=== PATIENT | female | born 1990 | race African-American/Black ===

== ENCOUNTER 2017-07-04 18:12 | Emergency (ER) | payer MEDICAID, SELFPAY ==
[2017-07-04 21:07] LABS: #Basophils 0.1 thou/uL (0.0-0.2); #Eosinphils 0.6 thou/uL (0.0-0.7); #Lymphocytes 3.5 thou/uL (1.20-3.40); #Monocytes 0.5 thou/uL (0.11-0.59); #Neutrophils 3.5 thou/uL (1.40-6.50); %Basophils 0.8 % (0.0-1.0); %Lymphocytes 43.1 % (21.0-51.0); Hematocrit 38.6 % (36.0-47.0); Mean Platelet Volume 7.2 fL (7.4-10.4); White Blood Cell (WBC) Count 8.1 thou/uL (4.8-10.8)
[2017-07-04 21:19] LABS: Bilirubin Negative (Negative); Blood, Urine Negative (Negative); Glucose, Urine (Dipstick) Negative (Negative); Ketone, Urine Negative (Negative); Nitrite Negative (Negative); Protein, Urine (Dipstick) Negative (Neg-Trace)
[2017-07-04 21:28] LABS: ALT (SGPT) 16 U/L (8-55); AST (SGOT) 21 U/L (5-34); Alkaline Phosphatase 63 U/L (40-150); Anion Gap 12 mmol/L (10-20); BUN (Urea Nitrogen) 15 mg/dL (7.0-18.7); Bilirubin, Total 0.4 mg/dL (0.2-1.2); Calc. Creatinine Clearance 0 mL/min (70-130); Calcium 9.1 mg/dL (7.8-10.44); Carbon Dioxide 21 mmol/L (22-29); Chloride 109 mmol/L (98-107); Estimated GFR-MDRD 75; Globulin 3.1 g/dL (2.4-3.5); Protein, Total 6.9 g/dL (6.0-8.3)
== END 2017-07-04 22:27 | disposition home or self-care (01) ==
LOC: ERS 18:12
DX: O99.89 Other specified diseases and conditions complicating pregnancy, childbirth and the puerperium (principal); R42 Dizziness and giddiness; O99.341 Other mental disorders complicating pregnancy, first trimester; F41.9 Anxiety disorder, unspecified; F32.9 Major depressive disorder, single episode, unspecified
CPT/HCPCS: 36415; 80053; 81003; 81025; 85025; 99284

== ENCOUNTER 2017-07-21 18:20 | Emergency (ER) | payer SELFPAY ==
[2017-07-21 19:30] LABS: #Basophils 0.1 thou/uL (0.0-0.2); #Eosinphils 0.3 thou/uL (0.0-0.7); #Lymphocytes 2.4 thou/uL (1.20-3.40); #Monocytes 0.7 thou/uL (0.11-0.59); #Neutrophils 3.2 thou/uL (1.40-6.50); %Basophils 0.9 % (0.0-1.0); %Eosinophils 4.1 % (0.0-10.0); %Lymphocytes 36.5 % (21.0-51.0); %Monocytes 9.9 % (0.0-10.0); Hematocrit 37.4 % (36.0-47.0); Mean Platelet Volume 7.5 fL (7.4-10.4); Red Blood Cell (RBC) Count 4.47 mill/uL (4.20-5.40); White Blood Cell (WBC) Count 6.5 thou/uL (4.8-10.8)
[2017-07-21 19:31] LABS: ALT (SGPT) 12 U/L (8-55); AST (SGOT) 13 U/L (5-34); Alkaline Phosphatase 52 U/L (40-150); Anion Gap 11 mmol/L (10-20); BUN (Urea Nitrogen) 11 mg/dL (7.0-18.7); Bilirubin, Total 0.3 mg/dL (0.2-1.2); Calc. Creatinine Clearance 0 mL/min (70-130); Calcium 8.9 mg/dL (7.8-10.44); Carbon Dioxide 21 mmol/L (22-29); Chloride 107 mmol/L (98-107); Estimated GFR-MDRD Greater than 90; Globulin 2.8 g/dL (2.4-3.5); Protein, Total 6.3 g/dL (6.0-8.3)
[2017-07-21 19:44] LABS: Bilirubin Negative (Negative); Blood, Urine Negative (Negative); Glucose, Urine (Dipstick) Negative (Negative); Ketone, Urine Negative (Negative); Nitrite Negative (Negative); Protein, Urine (Dipstick) Negative (Neg-Trace)
[2017-07-21 19:47] LABS: Bacteria/HPF 1+ HPF (None Seen); Hyaline Casts/LPF 0-3 HYALINE CAST LPF (0-3 Hyaline); RBC/HPF 0-3 HPF (0-3); WBC/HPF 0-3 HPF (0-3)
--- NOTE | 2017-07-21 22:05 | ULT ---
PELVIC ULTRASOUND WITH DOPPLER EVALUATION: 07/21/17 INDICATION: History of left lower quadrant abdominal cramping and pain with history of . FINDINGS: The uterus measures 10.8 x 7.3 x 8 cm. There is an intrauterine gestational sac containing a p ole and yolk sac. No subchorionic hemorrhage is evident. The cardiac activity is noted at 169 beats per minute. No free fluid is present within the pelvis. The right ovary measures 4.2 x 2.3 x 3 cm. Left ovary measures 3.2 x 2.7 x 3.4 cm. There is normal f low to both ovaries. Estimated gestational age by ultrasound is 7 weeks, 6 days with estimated due date of 03/13/18. IMPRESSION: Single live intrauterine gestation. POS: [facility]
== END 2017-07-21 20:50 | disposition home or self-care (01) ==
LOC: ERS 18:20
DX: O99.89 Other specified diseases and conditions complicating pregnancy, childbirth and the puerperium (principal); R10.2 Pelvic and perineal pain; O99.341 Other mental disorders complicating pregnancy, first trimester; F41.9 Anxiety disorder, unspecified; F32.9 Major depressive disorder, single episode, unspecified; Z3A.12 12 weeks gestation of pregnancy
CPT/HCPCS: 36415; 76856; 80053; 81003; 81015; 84702; 85025; 87086; 93976

== ENCOUNTER 2017-08-15 18:28 | Emergency (ER) | payer MEDICAID ==
[2017-08-15 21:28] LABS: Bilirubin Negative (Negative); Blood, Urine Negative (Negative); Glucose, Urine (Dipstick) Negative (Negative); Ketone, Urine Negative (Negative); Nitrite Negative (Negative); Protein, Urine (Dipstick) Negative (Neg-Trace)
== END 2017-08-15 22:05 | disposition home or self-care (01) ==
LOC: ERS 18:28
DX: O99.89 Other specified diseases and conditions complicating pregnancy, childbirth and the puerperium (principal); R42 Dizziness and giddiness; Z3A.12 12 weeks gestation of pregnancy
CPT/HCPCS: 81003; 93005

== ENCOUNTER 2017-12-28 07:39 | Emergency (ER) | payer OTHER ==
--- NOTE | 2017-12-28 08:38 | RAD ---
LEFT KNEE FOUR VIEWS: History: Left knee pain. FINDINGS: Joint spaces are preserved. No acute fracture, dislocation, or fluid distention of the joint capsule are apparent. IMPRESSION: No acute osseous abnormalities are demonstrated. POS: [facility]
[2017-12-28] MEDS ORDERED: Acetaminophen 500 MG TAB ONE (09:18)
== END 2017-12-28 09:37 | disposition home or self-care (01) ==
LOC: ERS 07:39
DX: M25.562 Pain in left knee (principal); F32.9 Major depressive disorder, single episode, unspecified; F98.8 Other specified behavioral and emotional disorders with onset usually occurring in childhood and adolescence

== ENCOUNTER 2018-02-11 13:30 | Day surgery (SDC) | payer OTHER ==
[2018-02-11 14:01] VITALS: BMI 31.2
[2018-02-11 14:09] VITALS: BP 119/58; TEMP 98.1
--- NOTE | 2018-02-11 15:11 | PDOC.LDHP ---
Labor and Delivery H&P Chief complaint: other (abdominal pain/pressure) HPI: Summer Cueto is a 27 year old F at 38.4 wks by 12.2 wk US who presents to the L&D with c/o lower abdominal pressure/pain. This began yesterday and improved over a few hours. The symptoms started again today around 1 pm. She is still feeling baby move. She denies any LOF, vaginal bleeding, consistent contractions, vaginal discharge, dysuria. She states that she tries to drink alot of water, but did not feel like she had been drinking enough. She also immediately requested food to the nurse upon arrival and to myself when I spoke to patient. Current gestational age (weeks): 38 (38.4) Due date: 02/21/18 Dating criteria: first trimester ultrasound Grav: 2 Para: 1 (1001) OB History Details: First resulted in term spontaneous vaginal delivery. complicated by pre-eclampsia. Current complications: none Abnormal US findings: No Past Medical History: None Current medications: pre-juventino vitamins Previous surgical history: other (lap band surgery in 2006) Social history: none - Physical Exam Vital signs reviewed and normal: yes (BP 119/58) General: NAD, resting Heart: RRR Lungs: CTAB Abdomen: NTTP Extremeties: no edema FHT: category 1 (Baseline 120s, accels present, mod variability, no decels) [place] contractions every: 1-2 ctx over 40 minutes - Vaginal Exam cm dilated: 3 Effacement: 0% Station: -2 - OB Labs Blood type: O RH: positive Antibody Screen: negative HIV: negative RPR: negative HEPSAg: negative 1 hour GCT: negative GBS: unknown Rubella: immune - Assessment (1) tIUP - Plan -: (1) tIUP: patient has occasional contractions, maybe 1 every 20 min. Initial check was 3/0/-2. Allowing patient to eat. Will recheck in 1-2 hours to monitor for cervical change. Otherwise patient will be able to go home and follow up with Dr. Ho at [facility]. Encouraged increased water intake. <Dar Silvestre - Last Filed: 02/11/18 15:59> <Debbie Murphy - Last Filed: 02/11/18 16:46> Allergies/Adverse Reactions: Allergies Allergy/AdvReac Type Severity Reaction Status Date / Time No Known Drug Allergies Allergy Verified 07/07/15 15:00 Attending Addendum - Attending Addendum Date/Time: 02/11/18 1641 I personally evaluated the patient and discussed the management with Dr. Silvestre I agree with the History, Examination, Assessment and Plan documented above with any addition or exceptions noted below. 27 yo female at 38.4 wks by 12.2 wk sono here for evaluation of pelvic pressure. No s/sx of labor. SVE stable. UA pending. FHT reactive however variability is barely meeting criteria for moderate. +FM per patient. Awaiting BPP. Patient has not eaten in quit some time. Will oral hydrate and feed patient. Continue monitoring. Dispo: Monitor. If BPP reassuring will d/c to home with follow up at [facility] next week. If not reassuring will admit. JoelMD <Debbie Murphy - Last Filed: 02/11/18 16:46>
--- NOTE | 2018-02-11 19:32 | ULT ---
BIOPHYSICAL PROFILE: 02/11/18 HISTORY: Pelvic pain. Multiple longitudinal and transverse images of the pelvis is obtained using a multihertz curvilinear transducer. Real time, color flow, and M-mode sonography demonstrates a viable intrauterine with the fetus in cephalic presentation. The placenta is anterior and grade I. Cardiac activity sandy ures 139 beats per minute. Amniotic fluid index measures 13.1 cm. BIOPHYSICAL PROFILE: tone = 2 breathing = 2 movement = 2 Amniotic fluid volume = 2 Composite = 8 out of 8. IMPRESSION: Biophysical profile measures 8 out of 8. POS: [facility]
[2018-02-11 19:48] LABS: Bilirubin Negative (Negative); Blood, Urine Negative (Negative); Clarity CLEAR (Clear); Glucose, Urine (Dipstick) Negative (Negative); Leukocyte Negative (Negative); Nitrite Negative (Negative); Protein, Urine (Dipstick) Trace mg/dL (Neg-Trace); Specific Gravity, Urine 1.029 (1.002-1.036); pH, Urine 6.5 (5.0-9.0)
== END 2018-02-11 20:35 | disposition home or self-care (01) ==
LOC: L&D/OP 13:30
PROVIDERS: ATTEND Emergency Medicine
DX: O99.89 Other specified diseases and conditions complicating pregnancy, childbirth and the puerperium (principal); R10.30 Lower abdominal pain, unspecified; Z3A.38 38 weeks gestation of pregnancy; Z79.899 Other long term (current) drug therapy
CPT/HCPCS: 51701; 76819; 81003; 96360; 96361; 99283; A4353

== ENCOUNTER 2018-02-18 07:54 | Inpatient (IN) | payer OTHER ==
[2018-02-18 08:36] VITALS: BMI 31.5
--- NOTE | 2018-02-18 11:01 | PDOC.LDHP ---
Labor and Delivery H&P Chief complaint: contractions HPI: 27 yo @ 39.4 wks by 12.2wk mike presents with contractions since this morning around 530am. She states that they are regular and are about 7 minutes apart. Pt denies LOF or vaginal discharge, endorses good movement and some vaginal spotting that occurred last week after her cervix was checked. She said last week she was dilated to a 2. MARITA: 02/21/2018 ROS: Gen: denies fevers, chills CV: denies chest pain, palpitations Resp: denies sob, wheezing abd: endorses painful contractions skin: denies rash Current gestational age (weeks): 39 (39.4) Due date: 02/21/18 Dating criteria: first trimester ultrasound (12.2) Grav: 2 Para: 1 OB History Details: with first baby, no complications, 8 lbs 12 ounces Current : [place] 79% Current complications: none, other (hx of gHTN in first ) Past Medical History: last pap: NILM 07/2017 Previous surgical history: other (lap band) Social history: none - Physical Exam Vital signs reviewed and normal: yes General: NAD Heart: RRR Lungs: CTAB Abdomen: gravid Extremeties: no edema FHT: category 1 - Vaginal Exam cm dilated: 5 Effacement: 50% Station: -3 - OB Labs Blood type: O RH: positive Antibody Screen: negative HIV: negative RPR: negative HEPSAg: negative 1 hour GCT: unknown GBS: unknown Rubella: immune - Assessment L&D Assessment: term patient in labor - Plan Plan: observation in L&D -: 27 yo @ 39.4wks presents in latent labor. Plan: Observe in L&D for 2-4 hours for cervical change. Anticipate admission and expectant labor management. Pt can eat lunch and encourage ambulation. H/H ordered. Will attempt to get third trimester labs and GBS status from [facility]. Otherwise will order if not available. <Nataly Salinas - Last Filed: 02/18/18 12:02> <Zachary Grayson - Last Filed: 02/18/18 13:26> Allergies/Adverse Reactions: Allergies Allergy/AdvReac Type Severity Reaction Status Date / Time No Known Drug Allergies Allergy Verified 02/18/18 08:33 Attending Addendum - Attending Addendum Date/Time: 02/18/18 0744 I personally evaluated the patient and reviewed and discussed the OB history and management with Dr. Nataly Burrell. I agree with the History, Examination, Assessment and Plan documented above with any addition or exceptions noted below. <Zachary Grayson - Last Filed: 02/18/18 13:26>
[2018-02-18] MEDS ORDERED: Bupivacaine 0.25% HCL 30 ML VIAL ONE (11:11)
[2018-02-18] MEDS: Lactated Ringer's 1,000 ML IV SCH ×3 (12:15→14:15)
[2018-02-18] MEDS ORDERED: NS / Oxytocin 40 units/1000ml 1,000 ML IV PRN (12:22)
[2018-02-18] MEDS ORDERED: Lidocaine 1% (PF) 30 ML VIAL SC PRN (12:22)
[2018-02-18] MEDS ORDERED: Ondansetron HCl/PF 4 MG/2 ML Vial IVP PRN ×3 (12:22→19:19)
[2018-02-18] MEDS ORDERED: Ibuprofen 800 MG TAB PO PRN (12:22)
[2018-02-18] MEDS ORDERED: Promethazine HCl 25 MG/ML VIAL IM PRN ×2 (12:22→13:40)
[2018-02-18 12:36] LABS: Hemoglobin 12.2 g/dL (12.0-16.0); Mean Corpuscular HGB CONC 34.5 g/dL (32.0-36.0); Mean Corpuscular Hemoglobin 28.9 pg (27.0-31.0); Mean Corpuscular Volume 83.9 fl (81.0-99.0); Platelet Count 276 thou/uL (130-400); RBC Distribution Width 13.4 % (11.5-14.5); Red Blood Cell (RBC) Count 4.21 mill/uL (4.20-5.40)
--- NOTE | 2018-02-18 12:44 | PDOC.LDPN ---
Labor & Delivery Progress Note - Subjective Subjective: painful contractions - Objective Vital signs reviewed and normal: yes General: NAD, breathing through contractions Uterine fundus: non tender SVE: 11:53 by nurse Dilation: 6 Effacement: 90% Station: -1 FHT: category 2 (baseline 105-110) [place] contractions every: q3 min - Assessment (1) Term Code(s): Z34.80 - ENCOUNTER FOR SUPRVSN OF NORMAL , UNSP TRIMESTER Current Visit: Yes Status: Acute Comment: 27 year old at 39.4 wk by 12.2 wk ultrasound presents in active labor - Admit to L&D - Expectant management - Monitor closely; category II strip due to low baseline FHT's (105-110) - Plan to rupture after epidural - Epidural for anesthesia Plan: continue plan of care <Tammy Bran - Last Filed: 02/18/18 12:39> Attending Addendum - Attending Addendum Date/Time: 02/18/18 3567 I personally reviewed and discussed the management with Dr. Leyva. I agree with the History, Examination, Assessment and Plan documented above with any addition or exceptions noted below. <Zachary Grayson - Last Filed: 02/18/18 13:35>
[2018-02-18] MEDS ORDERED: Bupivacaine 0.5% 20 ML, fentaNYL Citrate/PF 400 MCG in Sodium Chloride 0.9% 72 ML EPIDURAL SCH (12:45)
[2018-02-18] MEDS ORDERED: DISCONTINUE ALL PREVIOUS NARCOTICS FS SCH (12:45)
[2018-02-18 13:25] LABS: Syphilis Antibody Nonreactive (Nonreactive); Syphilis Antibody Index 0.06 S/CO (<1.00 Non-Reactive)
[2018-02-18 13:26] LABS: HBSAg Index 0.23 S/CO (0-0.99); Hep B Surf Ag Non-Reactive S/CO (NonReactive)
[2018-02-18] MEDS ORDERED: ePHEDrine/0.9% NaCl/PF SYRINGE 50 mg/10 ml SLOW IVP PRN (13:40)
[2018-02-18] MEDS ORDERED: diphenhydrAMINE 50 MG/ML VIAL IVP PRN (13:40)
[2018-02-18] MEDS ORDERED: Naloxone HCl 0.4 mg/ml Vial IVP PRN ×2 (13:40)
[2018-02-18] MEDS ORDERED: Acetaminophen 325 MG TAB PO PRN (13:40)
[2018-02-18] MEDS ORDERED: Eucerin (Mineral Oil/Petrolatum,White) 30 gm Jar TOP PRN (13:40)
[2018-02-18] MEDS ORDERED: Lactated Ringer's 500 ML IV PRN (13:40)
[2018-02-18] MEDS ORDERED: Communication Order-Pharmacy FS SCH (13:45)
[2018-02-18] MEDS ORDERED: Fentanyl 4mcg/Marcaine 0.1% Cassette 100 ML EPIDURAL SCH (13:45)
[2018-02-18 15:00] LABS: Amphetamine Not Detected (NotDetected); Barbiturates Screen Not Detected (NotDetected); Benzodiazepine Screen Not Detected (NotDetected); Cocaine Metabolite Screen Detected (NotDetected); Medtox Control Line Valid? VALID (VALID); Medtox Reader # READER 1; Methadone Not Detected (NotDetected); Methamphetamine Not Detected (NotDetected); Opiate Screen Not Detected (NotDetected); Oxycodone Screen Not Detected (NotDetected); Phencyclidine (PCP) Not Detected (NotDetected); THC/Cannabinoid Screen Not Detected (NotDetected); Tricyclic Screen Not Detected (NotDetected)
--- NOTE | 2018-02-18 15:11 | PDOC.OPDEL ---
OB Operative/Delivery Note Delivery Dr/Surgeon: Yina Assist: Renuka Johnson Pre-Delivery Diagnosis: active labor Weeks gestation: 39 (39.4 wks) Anesthesia: epidural - Findings A Sex: female - 1 min: 9 - 5 min: 9 - Additional Findings/Plan Placenta delivered: spontaneous Repaired Obstetrical Laceration: none Estimated blood loss: 250 mL Post delivery plan: routine recovery <Tammy Bran - Last Filed: 02/18/18 15:10> Attending Addendum - Attending Addendum Date/Time: 02/19/18 1504 I personally evaluated the patient, and supervised the spontaneous vaginal delivery, and discussed the management with Dr. Bran and Dr. Johnson. I agree with the History, Examination, Assessment and Plan documented above with any addition or exceptions noted below. <Zachary Grayson - Last Filed: 02/19/18 15:06>
[2018-02-18] MEDS ORDERED: Bisacodyl 10 MG SUPP PR PRN (19:19)
[2018-02-18] MEDS ORDERED: NS / Oxytocin 40 units/1000ml 1,000 ML IV SCH (19:19)
[2018-02-18] MEDS ORDERED: Lanolin Ointment 7 GM TUBE TOP PRN (19:19)
[2018-02-18] MEDS ORDERED: Adacel (T-DAP) 0.5 ML VIAL IM ONE (19:19)
[2018-02-18] MEDS ORDERED: Milk Of Magnesia 30 ML UDCUP PO PRN (19:19)
[2018-02-18] MEDS: Ferrous Sulfate 325 MG TAB PO SCH (21:33)
[2018-02-18] MEDS: Ibuprofen 800 MG TAB PO SCH (22:10)
[2018-02-18] MEDS: Docusate Calcium (SURFAK) 240 MG CAP PO SCH (22:10)
[2018-02-19] MEDS: Ibuprofen 800 MG TAB PO SCH ×3 (05:16→22:01)
--- NOTE | 2018-02-19 08:03 | PDOC.LDPN ---
Labor & Delivery Progress Note - Assessment (1) Term Code(s): Z34.80 - ENCOUNTER FOR SUPRVSN OF NORMAL , UNSP TRIMESTER Current Visit: Yes Status: Acute Comment: 27 year old at 39.4 wk by 12.2 wk ultrasound presents in active labor - Admit to L&D - Expectant management - Monitor closely; category II strip due to low baseline FHT's (105-110) - Plan to rupture after epidural - Epidural for anesthesia (2) Normal spontaneous vaginal delivery Code(s): O80 - ENCOUNTER FOR FULL-TERM UNCOMPLICATED DELIVERY Current Visit: No Status: Acute Comment: Now ambulating without pain. +BM. No intrapartum complications other than a small vaginal laceration confluent with 1st degree sidewall, repaired shortly after delivery with good hemostasis. Hemodynamically stable overnight. No complications. Anticipate discharge today.
--- NOTE | 2018-02-19 08:05 | PDOC.PP ---
Post Progress Note Post Day #: 1 Subjective: 27 yo @ 39.4 wks by 12.2wk sono s/p yesterday at 1430 to a TAGA female. No complications. Pt doing well this am although UDS positive for coaine. VSS. PO intake tolerated: yes Flatus: yes Ambulation: yes Vital Signs (12 hours) Temp Pulse Resp BP 02/19/18 04:00 98.0 F 57 L 18 112/59 L 02/19/18 00:15 97.8 F 54 L 18 111/59 L Weight Weight 99.79 kg - Physical Examination General: NAD Cardiovascular: no m/r/g, RRR Respiratory: clear to auscultation bilaterally Abdominal: + bowel sounds Neurological: no gross focal deficits Psychiatric: A&Ox3, normal affect Result Diagrams: 02/18/18 11:59 Additional Labs: Post Labs Blood Type O POSITIVE 02/18/18 12:35 Hep Bs Antigen Non-Reactive S/CO (NonReactive) 02/18/18 12:35 (1) Term Code(s): Z34.80 - ENCOUNTER FOR SUPRVSN OF NORMAL , UNSP TRIMESTER Status: Acute Comment: 27 year old at 39.4 wk by 12.2 wk ultrasound presents with contractions now s/p @ 1430 on 02/18. No complications -Monitor I/Os -Encourage ambulation, PO intake, flatus, and pain control. -CM consult for UDS + for cocaine; pt endorses use prior to but not during (2) Normal spontaneous vaginal delivery Code(s): O80 - ENCOUNTER FOR FULL-TERM UNCOMPLICATED DELIVERY Status: Acute Comment: see above <Nataly Salinas - Last Filed: 02/19/18 10:05> Vital Signs (12 hours) Temp Pulse Resp BP 02/19/18 11:35 98.7 F 51 L 20 118/63 02/19/18 08:25 98.1 F 53 L 18 108/58 L 02/19/18 08:20 98.1 F 53 L 18 02/19/18 04:00 98.0 F 57 L 18 112/59 L Weight Weight 99.79 kg Result Diagrams: 02/18/18 11:59 Additional Labs: Post Labs Blood Type O POSITIVE 02/18/18 12:35 Hep Bs Antigen Non-Reactive S/CO (NonReactive) 02/18/18 12:35 <Zachary Grayson - Last Filed: 02/19/18 15:19> Attending Addendum - Attending Addendum Date/Time: 02/19/18 8786 I personally evaluated the patient and discussed the management with Dr. Brad Burrell. I agree with the History, Examination, Assessment and Plan documented above with any addition or exceptions noted below. She feels well. Denies any recent use of drugs and states she's "been clean" since she learned she was . However, her UDS and her 's UDS are both + for cocaine this admission. Will consult Case Management. Continue routine NB care. I encouraged her to consider breast feeding. breast fed well immediately after delivery, but has been in the nursery all night and mom states she plans to bottle feed. [facility] <Zachary Grayson - Last Filed: 02/19/18 15:19>
[2018-02-19] MEDS: Ferrous Sulfate 325 MG TAB PO SCH ×2 (09:29→14:31)
[2018-02-19] MEDS: Docusate Calcium (SURFAK) 240 MG CAP PO SCH ×2 (09:36→22:02)
[2018-02-19] MEDS: Prenatal Vitamin 1 TAB PO SCH (09:36)
[2018-02-20] MEDS: Ibuprofen 800 MG TAB PO SCH ×2 (06:06→13:46)
--- NOTE | 2018-02-20 07:38 | PDOC.PP ---
Post Progress Note Post Day #: 2 Subjective: 27 yo @ 39.4 wks by 12.2wk sono s/p on 02/20 at 1430 to a TAGA female. Seen by CM yesterday. CPS referral placed. No complaints this am. PO intake tolerated: yes Flatus: yes Ambulation: yes Vital Signs (12 hours) Temp Pulse Resp BP 02/19/18 20:20 98.6 F 59 L 18 124/60 Weight Weight 99.79 kg - Physical Examination General: NAD Cardiovascular: no m/r/g, RRR Respiratory: clear to auscultation bilaterally Abdominal: + bowel sounds, lochia (minimal) Neurological: no gross focal deficits Psychiatric: A&Ox3, normal affect Result Diagrams: 02/18/18 11:59 Additional Labs: Post Labs Blood Type O POSITIVE 02/18/18 12:35 Hep Bs Antigen Non-Reactive S/CO (NonReactive) 02/18/18 12:35 (1) Term Code(s): Z34.80 - ENCOUNTER FOR SUPRVSN OF NORMAL , UNSP TRIMESTER Status: Acute Comment: 27 year old at 39.4 wk by 12.2 wk ultrasound presents with contractions now s/p @ 1430 on 02/18. No complications -Monitor I/Os -Encourage ambulation, PO intake, flatus, and pain control. -CM saw pt yesterday and placed CPS referral. (2) Normal spontaneous vaginal delivery Code(s): O80 - ENCOUNTER FOR FULL-TERM UNCOMPLICATED DELIVERY Status: Acute Comment: see above <Nataly Salinas - Last Filed: 02/20/18 09:55> Weight Weight 99.79 kg Result Diagrams: 02/18/18 11:59 Additional Labs: Post Labs Blood Type O POSITIVE 02/18/18 12:35 Hep Bs Antigen Non-Reactive S/CO (NonReactive) 02/18/18 12:35 <Zachary Grayson - Last Filed: 02/21/18 07:58> Attending Addendum - Attending Addendum Date/Time: 02/21/18 1461 I personally evaluated the patient and discussed the management with Dr. Brad Burrell. I agree with the History, Examination, Assessment and Plan documented above with any addition or exceptions noted below. Please add Positive Urine Drug Screen for Cocaine Metabolites to the Assessment/ Diagnosis. Guille <Zachary Grayson - Last Filed: 02/21/18 07:58>
[2018-02-20] MEDS: Ferrous Sulfate 325 MG TAB PO SCH (08:13)
[2018-02-20] MEDS: Docusate Calcium (SURFAK) 240 MG CAP PO SCH (08:16)
[2018-02-20] MEDS: Prenatal Vitamin 1 TAB PO SCH (08:16)
[2018-02-20 10:12] VITALS: BP 120/68; TEMP 98.2
--- NOTE | 2018-02-20 14:39 | OP-2 ---
DELIVERING PHYSICIAN: Dr. Jeyson Francisco. ATTENDING: Dr. Zachary Grayson. PROCEDURE: Spontaneous vaginal delivery. ANESTHESIA: Epidural. ESTIMATED BLOOD LOSS: 250 mL. PREOPERATIVE DIAGNOSES: 1. Term intrauterine in labor. 2. GBS status unknown. 3. History of cocaine abuse. POSTOPERATIVE DIAGNOSES: 1. Term intrauterine , delivered. 2. GBS status unknown. 3. History of cocaine abuse. INDICATIONS: This is a 27-year-old female, G2, P1-0-0-1, presents in active labor. DELIVERY NOTE: This is a 27-year-old female G2, P1-0-0-1 at 39 and 4 weeks who delivered a viable fe male at 1441 hours on 02/18/2018. Following an uneventful antepartum course, vigorous female was delivered over an intact perineum in the occipitoanterior position. Anterior shoulder and then r emainder of the body was delivered. There was one nuchal cord, which was reduced. The head was held down and mouth and nares was bulb suctioned. Cord was clamped and cut and cord blood collected. Pl melnta delivered intact with a 3-vessel cord noted. Fundal massage was performed and the fundus was firm. The cervix and vagina were inspected and found to be free of lacerations. Infant went to [facility] in good condition for routine care. Apgars were 9 and 9 at 1 and 5 minutes, respectively . The patient tolerated delivery well and went to after routine recovery/care.
== END 2018-02-20 14:30 | disposition home or self-care (01) | DRG 775 ==
LOC: L&D/OP 07:54 → L&D 13:06 → 3SW 17:33
PROVIDERS: ADMIT Family Medicine; ATTEND Family Medicine
PROC: 10E0XZZ Delivery of Products of Conception, External Approach (ICD-10-PCS; principal; 2018-02-18)
DX: O69.81X0 Labor and delivery complicated by cord around neck, without compression, not applicable or unspecified (principal); Z37.0 Single live birth; Z3A.39 39 weeks gestation of pregnancy; F14.11 Cocaine abuse, in remission
CPT/HCPCS: 36415; 51702; 80306; 85027; 86780; 86850; 86900; 86901; 87340; 99285; J2001; J3010; J3490; J7050; S0020

== ENCOUNTER 2018-04-07 16:39 | Emergency (ER) | payer OTHER ==
[2018-04-07 17:28] LABS: #Basophils 0.1 thou/uL (0.0-0.2); #Eosinphils 0.7 thou/uL (0.0-0.7); #Lymphocytes 1.9 thou/uL (1.20-3.40); #Monocytes 0.5 thou/uL (0.11-0.59); %Basophils 1.2 % (0.0-1.0); %Eosinophils 13.9 % (0.0-10.0); %Lymphocytes 37.4 % (21.0-51.0); %Monocytes 8.8 % (0.0-10.0); %Neutrophils 38.7 % (42.0-75.0); Hemoglobin 11.8 g/dL (12.0-16.0); Mean Corpuscular HGB CONC 33.2 g/dL (32.0-36.0); Mean Corpuscular Hemoglobin 28.3 pg (27.0-31.0); Mean Corpuscular Volume 85.1 fL (78.0-98.0); Mean Platelet Volume 6.7 fL (7.4-10.4); Platelet Count 279 thou/uL (130-400); RBC Distribution Width 15.1 % (11.5-14.5); Red Blood Cell (RBC) Count 4.17 mill/uL (4.20-5.40); White Blood Cell (WBC) Count 5.2 thou/uL (4.8-10.8)
--- NOTE | 2018-04-07 19:19 | ULT ---
HISTORY: Vaginal delivery on 02/18/18 with vaginal bleeding. Multiple longitudinal and transverse images of the pelvis is obtained using a multihertz curvilinear transabdominal as well as multihertz endovaginal transducers. Real time, color flow and spectral wave form doppler analysis is obtained to evaluate the pelvis. The uterus is of normal contour, axis and size measuring 8.3 x 5.2 x 6.7 cm. The endometrium is of no rmal thickness measuring 3 mm. No evidence of uterine masses seen. Both ovaries visualized with good blood flow. The right ovary measures 3.9 x 1.9 x 2.0 cm and the lef t ovary measures 3.5 x 1.9 x 1.8 cm. No evidence of free pelvic fluid is seen. Good blood flow seen in both ovaries. IMPRESSION: Normal pelvic ultrasound. POS: [facility]
[2018-04-07 19:49] LABS: Pregnancy Test - Urine (BHCG) Negative (Negative); Pregu Control Background? CLEAR/WHITE (CLR/WHITE); Pregu Control Bar Appear? YES (CONTROL BAR); Specific Gravity 1.029 (1.002-1.036)
== END 2018-04-07 19:41 | disposition home or self-care (01) ==
LOC: ERS 16:39
DX: N93.9 Abnormal uterine and vaginal bleeding, unspecified (principal); F32.9 Major depressive disorder, single episode, unspecified; F98.8 Other specified behavioral and emotional disorders with onset usually occurring in childhood and adolescence; F17.210 Nicotine dependence, cigarettes, uncomplicated
CPT/HCPCS: 36415; 76856; 81025; 85025

== ENCOUNTER 2018-09-08 22:17 | Emergency (ER) | payer OTHER, SELFPAY | END 2018-09-08 22:50 | disposition home or self-care (01) | LOC: ERS 22:17 | DX: L03.011 Cellulitis of right finger (principal); F98.8 Other specified behavioral and emotional disorders with onset usually occurring in childhood and adolescence; F32.9 Major depressive disorder, single episode, unspecified; F17.210 Nicotine dependence, cigarettes, uncomplicated | CPT/HCPCS: 99283 ==

== ENCOUNTER 2018-11-09 21:21 | Emergency (ER) | payer SELFPAY | END 2018-11-09 23:48 | disposition home or self-care (01) | LOC: ERS 21:21 | DX: K64.4 Residual hemorrhoidal skin tags (principal); F17.210 Nicotine dependence, cigarettes, uncomplicated; F32.9 Major depressive disorder, single episode, unspecified | CPT/HCPCS: 99282 ==

== ENCOUNTER 2019-07-17 20:35 | Inpatient (IN) | payer OTHER, SELFPAY ==
[~2019-07-17 20:35] MED LIST: Bupivacaine/Epinephrine 0.25% 30 ML VIAL ONE
[2019-07-17 21:32] VITALS: BMI 31.5
[2019-07-17] MEDS ORDERED: FLU VACC QS2019-20(6MOS UP)/PF 60 MCG/0.5 ML SYRINGE IM ONE (22:00)
[2019-07-17 22:06] LABS: Amnisure Internal Control QC ACCEPTABLE (ACCEPTABLE); Amnisure Test RUPTURE DETECTED (No Rupture)
[2019-07-17] MEDS ORDERED: Promethazine HCl 25 MG/ML VIAL IM PRN (23:09)
[2019-07-17] MEDS ORDERED: hydrALAZINE 20 MG/ML VIAL SLOW IVP PRN ×2 (23:09)
[2019-07-17] MEDS ORDERED: Ondansetron PF 4 MG/2 ML Vial IVP PRN (23:09)
[2019-07-17] MEDS: Lactated Ringer's 1,000 ML IV SCH (23:20)
[2019-07-17] MEDS ORDERED: Misoprostol 100 MCG TAB PO SCH (23:30)
[2019-07-18] MEDS ORDERED: Lidocaine 1% (PF) 30 ML VIAL SC PRN (00:12)
[2019-07-18] MEDS ORDERED: NS / Oxytocin 40 units/1000ml 1,000 ML IV PRN (00:12)
[2019-07-18 00:23] LABS: Hemoglobin 11.2 g/dL (12.0-16.0); RBC Distribution Width 12.3 % (11.5-14.5)
[2019-07-18 00:31] LABS: Amphetamine Not Detected (NotDetected); Barbiturates Screen Not Detected (NotDetected); Benzodiazepine Screen Not Detected (NotDetected); Cocaine Metabolite Screen Detected (NotDetected); Medtox Control Line Valid? VALID (VALID); Medtox Reader # READER 1; Methadone Not Detected (NotDetected); Methamphetamine Not Detected (NotDetected); Opiate Screen Not Detected (NotDetected); Oxycodone Screen Not Detected (NotDetected); Phencyclidine (PCP) Not Detected (NotDetected); THC/Cannabinoid Screen Not Detected (NotDetected); Tricyclic Screen Not Detected (NotDetected)
[2019-07-18 00:37] LABS: Mean Corpuscular HGB CONC 34.7 g/dL (32.0-36.0); Mean Corpuscular Hemoglobin 29.5 pg (27.0-31.0); Mean Corpuscular Volume 84.9 fL (78.0-98.0); Mean Platelet Volume 8.2 fL (7.4-10.4); Platelet Count 250 thou/uL (130-400); Red Blood Cell (RBC) Count 3.79 mill/uL (4.20-5.40); White Blood Cell (WBC) Count 9.7 thou/uL (4.8-10.8)
[2019-07-18] MEDS ORDERED: Misoprostol 100 MCG TAB PO SCH (01:00)
[2019-07-18 01:02] LABS: Syphilis Antibody Nonreactive (Nonreactive); Syphilis Antibody Index 0.06 S/CO (<1.00 Non-Reactive)
[2019-07-18 01:03] LABS: HBSAB Concentration 181.06 mIU/mL; Hep B Surf AB Reactive (NonReactive)
[2019-07-18 01:03] LABS: HIV (1/2) Antibody/Antigen Non-Reactive (NonReactive); HIV 1/2 INDEX 0.05 S/CO (<1.00)
--- NOTE | 2019-07-18 01:27 | PDOC.LDHP ---
Labor and Delivery H&P Chief complaint: loss of fluid HPI: 28yo presents at 38.6 for leaking of fluid. Pt states that around 1300 she felt fluid trickling down her leg and this continued throughout the night. Pt then came in to be evaluated and had a positive amnisure. She denied feeling any contractions and had none on monitor. Denies any complications with this . Review of records show pt was only seen 1 time for initial OB visit and once for a 2T dating US. Pt did not follow up with any other visits and had no testing performed. Pt attributes this to short term memory problems that she has had for along period of time - 10/28 to unknown etiology. Pt has hx of bipolar 1 and is not currently medicated. Denies taking any medications at this time. She does note activity. Denies PATIÑO, N/V/D, dysuria, vaginal bleeding or discharge, vision changes, swelling, fevers or chills. Current gestational age (weeks): 38 (6d) Due date: 07/25/19 Dating criteria: second trimester ultrasound Grav: 3 Para: 2 OB History Details: 1st: Possible high blood pressure, did not require treatment - Term 2nd: Normal gestation and delivery - Term Current complications: none Abnormal US findings: No Current medications: none Previous surgical history: other (Lap-band procedure) Allergies/Adverse Reactions: Allergies Allergy/AdvReac Type Severity Reaction Status Date / Time No Known Drug Allergies Allergy Verified 02/18/18 08:33 Social history: none - Physical Exam Vital signs reviewed and normal: yes General: NAD Heart: RRR Lungs: CTAB Abdomen: gravid Extremeties: no edema FHT: category 1, variability present - Vaginal Exam cm dilated: 2 Effacement: 25% Station: -2 - OB Labs Blood type: unknown RH: unknown Antibody Screen: unknown HIV: unknown RPR: unknown HEPSAg: unknown 1 hour GCT: unknown GBS: unknown Urine drug screen: not done - Assessment L&D Assessment: term rupture in membranes - Plan Plan: admit to L&D, cervical ripening, labor augmentation if indicated -: SROM w/o contractions - Induction of Labor - Cytotec 50mcg PO and 25mcg q4hr as needed - Cervical checks q4hr - Pitocin for labor augmentation following cervical ripening as indicated - ROM at 1300 on 07/17 Lack of Care - testing labs ordered Hx of Drug Abuse (cocaine + on previous preg) - UDS Dispo: Admit to L&D for induction of labor in term Addendum - Attending - Attending Attestation Date/Time: 07/18/19 7458 I personally evaluated the patient and discussed the management with Dr. Carballo on 07/17/2019 I agree with the History, Examination, Assessment and Plan documented above with any addition or exceptions noted below - 28 yo @ 38.6 weeks presented c/o LOF @ 1PM. Denies any CTX, VB (+)FM. Taking PNV. Afebrile VSS. SVE per nurse 11/20/-2/post/med; Category 1 FHTs. [place]- occ ctx. A/P: 1) IUP@ 38.6 weeks with prelabor rupture of membranes - Admit to L&D- Bernal=3; will use oral misoprostol for cervical ripening. 2) Scant PNC- had 1 visit and 1 USG at office. No labs recorded. Will obtain all labwork including UDS. 3) GBS unknown - patient is term and review of prior delivery records showed she was GBS negative with 1st and unknown with second - will not treat based on this. 4) H/o cocaine use- review of chart showed (+) UDS for cocaine in prior - will check today.
[2019-07-18] MEDS ORDERED: Fentanyl 4 mcg/Bup 0.1% Cadd 100 ML ONE (01:57)
--- NOTE | 2019-07-18 02:26 | PDOC.LDPN ---
Labor & Delivery Progress Note - Subjective Subjective: comfortable - Objective Vital signs reviewed and normal: yes General: NAD Uterine fundus: non tender Dilation: 5 Effacement: 75% Station: -1 FHT: category 1, variability present [place] contractions every: 2-5 - Assessment (1) Limited care, antepartum Code(s): O09.30 - SUPRVSN OF PREG W INSUFFICIENT ANTENAT CARE, UNSP TRIMESTER Current Visit: Yes Status: Acute (2) Hx of substance abuse Code(s): F19.11 - OTHER PSYCHOACTIVE SUBSTANCE ABUSE, IN REMISSION Current Visit: Yes Status: Acute (3) Spontaneous rupture of amniotic membranes Code(s): KXH4604 - Current Visit: Yes Status: Acute (4) Term Code(s): Z34.80 - ENCOUNTER FOR SUPRVSN OF NORMAL , UNSP TRIMESTER Current Visit: No Status: Acute Comment: 28yo at 38.7 by 2T US presents with SROM. - s/p cytotec 50mcg PO - Cat 1 strip - Epidural for anesthesia - placing now - Expectant management Plan: continue plan of care, labor augmentation, other
[2019-07-18] MEDS ORDERED: diphenhydrAMINE 50 MG/ML VIAL IVP PRN (02:40)
[2019-07-18] MEDS ORDERED: Acetaminophen 325 MG TAB PO PRN (02:40)
[2019-07-18] MEDS ORDERED: Lactated Ringer's 500 ML IV PRN (02:40)
[2019-07-18] MEDS ORDERED: ePHEDrine/0.9% NaCl/PF SYRINGE 50 mg/10 ml SLOW IVP PRN (02:40)
[2019-07-18] MEDS ORDERED: Naloxone HCl 0.4 mg/ml Vial IVP PRN ×2 (02:40)
[2019-07-18] MEDS ORDERED: Promethazine HCl 25 MG/ML VIAL IM PRN (02:40)
[2019-07-18] MEDS ORDERED: Ondansetron PF 4 MG/2 ML Vial IVP PRN (02:40)
[2019-07-18] MEDS ORDERED: Fentanyl 4 mcg/Bupivacaine 0.1% Cassette 100 ML EPIDURAL SCH (02:45)
[2019-07-18] MEDS ORDERED: Communication Order-Pharmacy FS SCH (02:45)
[2019-07-18] MEDS ORDERED: Lidocaine 1% (PF) 30 ML VIAL ONE (03:05)
--- NOTE | 2019-07-18 04:37 | PDOC.OPDEL ---
OB Operative/Delivery Note Delivery Dr/Surgeon: Dr. Carballo Assist: Dr. Silvestre, Attending Dr. Villa Pre-Delivery Diagnosis: medically indicated induction, ruptured membrane Procedure/Post Delivery Dx: spontaneous vaginal delivery Weeks gestation: 39 Anesthesia: epidural - Findings A Sex: female Weight: 2.595 kg - 1 min: 8 - 5 min: 9 - Additional Findings/Plan Placenta delivered: spontaneous Repaired Obstetrical Laceration: none Estimated blood loss: QBL 20ml Compilations/Other Findings: Vaginal Delivery Note This is a 28 year old female G3 now P3003 @ 39wks who delivered a viable F at 0319. Following an uneventful antepartum course, a vigorous female was delivered over an intact perineum in the occipitoanterior position. Anterior shoulder and then remainder of the body delivered. No nuchal cord. The head was held down and mouth and nares were bulb suctioned. Cord clamped and cut and cord blood collected. Placenta delivered intact with a 3 vessel cord noted. Fundal massage was performed and the fundus was firm. The cervix and vagina were inspected and found to be free of lacerations. Infant went to nursery in good condition for routine care. Apgars were 8/9 at 1 & 5 minutes, respectively. Patient tolerated delivery well and went to after routine recovery/care. Post delivery plan: routine recovery Addendum - Attending - Attending Attestation Date/Time: 07/18/19 0758 I was present and assisted with the of a viable female to a 28 yo @39 weeks. Apgars 8/9 Placent delivered spontaneously and intact. 3V cord.m No epis or lacs. QBL 20 mL. Residents: Har[place] and Kon[place].
[2019-07-18 07:59] LABS: Bilirubin Negative (Negative); Blood, Urine Negative (Negative); Clarity Clear (Clear); Glucose, Urine (Dipstick) Normal (Negative); Leukocyte Negative Leu/uL (Negative); Nitrite Negative (Negative); Protein, Urine (Dipstick) Negative (Neg-Trace); RBC/HPF 0-3 HPF (0-3); Squamous Epithelial 0-3 HPF (0-3); Urobilinogen Normal mg/dL (Less than 2); WBC/HPF None Seen HPF (0-3)
[2019-07-18 08:08] LABS: Bacteria/HPF Rare-Few HPF (None Seen)
[2019-07-18] MEDS ORDERED: hydrALAZINE 20 MG/ML VIAL SLOW IVP PRN (08:17)
[2019-07-18] MEDS ORDERED: Milk Of Magnesia 30 ML UDCUP PO PRN (08:17)
[2019-07-18] MEDS ORDERED: Adacel (T-DAP) 0.5 ML SYRINGE IM ONE (08:17)
[2019-07-18] MEDS ORDERED: Bisacodyl 10 MG SUPP PR PRN (08:17)
[2019-07-18] MEDS ORDERED: NS / Oxytocin 40 units/1000ml 1,000 ML IV SCH (08:17)
[2019-07-18] MEDS ORDERED: Ferrous Sulfate 325 MG TAB PO SCH (08:30)
[2019-07-18] MEDS: Ibuprofen 800 MG TAB PO SCH ×2 (10:04→18:13)
[2019-07-18] MEDS: Docusate Calcium (SURFAK) 240 MG CAP PO SCH ×2 (10:04→21:27)
[2019-07-18] MEDS: Prenatal Vitamin 1 TAB PO SCH (10:05)
[2019-07-18 11:40] LABS: HBSAg Index 0.23 S/CO (0-0.99); Hep B Surf Ag Non-Reactive S/CO (NonReactive)
[2019-07-18] MEDS: Ferrous Sulfate 325 MG TAB PO SCH (18:14)
[2019-07-19] MEDS: Lactated Ringer's 1,000 ML IV SCH (02:24)
--- NOTE | 2019-07-19 05:38 | PDOC.PP ---
Post Progress Note Post Day #: 1 Subjective: Patient doing well this morning. Reports that she has not had a BM yet but is passing flatus, ambulating well. Reports that her lochia is less than a menstrual period, similar in amount to yesterday. She has had some mild abdominal cramping. She also states that she is somewhat depressed now that she knows CPS will be coming to talk to her today. No active plans to hurt herself or anyone else. Otherwise no complaints. PO intake tolerated: yes Flatus: yes Ambulation: yes Vital Signs (12 hours) Temp Pulse Resp BP Pulse Ox 07/19/19 00:00 98.1 F 67 20 116/65 100 07/18/19 19:30 98.5 F 69 12 132/77 100 Weight Weight 99.79 kg - Physical Examination General: NAD Cardiovascular: no m/r/g, RRR Respiratory: clear to auscultation bilaterally, non-labored breathing Abdominal: + bowel sounds, lochia, no distention, appropriately TTP Extremities: negative homans (B) Skin: no rash Neurological: no gross focal deficits Psychiatric: A&Ox3, normal affect Result Diagrams: 07/17/19 23:28 Additional Labs: Post Labs Blood Type O POSITIVE 07/17/19 23:28 Hep Bs Antigen Non-Reactive S/CO (NonReactive) 07/18/19 10:49 - Assessment/Plan Patient is a 28F G3 now P3, delivered at 39wks via yesterday at 0319 # day 1 -afebrile, vss -moderate lochia, less than a menstrual period -abdomen appropriately ttp -uterus firm, approximately at the level of the umbilicus -considering tubal ligation for pp contraception -will likely f/u with [facility] for pp care, information provided -plans to formula feed -ambulating and passing flatus/has not yet had a BM -UDS + for cocaine -CM saw patient yesterday and left a note that CPS will be by to talk with patient -depressed with no active plans to hurt herself or anybody else -2 previous children not under her custody Dispo: inpatient pp care, CPS consult likely today Addendum - Attending - Attending Attestation Date/Time: 07/19/19 5263 I personally evaluated the patient and discussed the management with Dr. Amos I agree with the History, Examination, Assessment and Plan documented above with any addition or exceptions noted below. Pending CPS recommendations, will d/c patient home without child or keep in hospital since need 48 hrs of monitoring due to GBS unknown.
[2019-07-19] MEDS: Ibuprofen 800 MG TAB PO SCH ×3 (06:01→20:59)
[2019-07-19] MEDS: Ferrous Sulfate 325 MG TAB PO SCH ×2 (09:04→16:58)
[2019-07-19] MEDS: Prenatal Vitamin 1 TAB PO SCH (09:05)
[2019-07-19] MEDS: Docusate Calcium (SURFAK) 240 MG CAP PO SCH ×2 (09:06→20:59)
[2019-07-20] MEDS: Ibuprofen 800 MG TAB PO SCH ×2 (05:12→13:47)
--- NOTE | 2019-07-20 05:13 | PDOC.PP ---
Post Progress Note Post Day #: 2 Subjective: Patient doing well this morning. CPS spoke with patient yesterday and baby is going home with patient's mother. Patient feels okay about this situation, reports that she is going to fight to get baby back. She is somewhat sad, but denies thoughts of hurting herself or others at this time. Reporting of decreased lochia, decreased abdominal pain. PO intake tolerated: yes Flatus: yes Ambulation: yes Vital Signs (12 hours) Temp Pulse Resp BP Pulse Ox 07/19/19 20:58 100 07/19/19 19:50 98.7 F 60 16 100/55 L 100 Weight Weight 99.79 kg - Physical Examination General: NAD Cardiovascular: no m/r/g, RRR Respiratory: clear to auscultation bilaterally, non-labored breathing Abdominal: + bowel sounds, lochia, no distention Extremities: negative homans (B) Skin: no rash Neurological: no gross focal deficits Psychiatric: A&Ox3, normal affect Result Diagrams: 07/17/19 23:28 Additional Labs: Post Labs Blood Type O POSITIVE 07/17/19 23:28 Hep Bs Antigen Non-Reactive S/CO (NonReactive) 07/18/19 10:49 Rubella IgG Antibody 5.03 index (Immune >0.99) 07/17/19 23:28 - Assessment/Plan Patient is a 28F G3 now P3, delivered at 39wks via yesterday at 0319 # day 2 -afebrile, vss -mild lochia, decreased from yesterday -abdomen appropriately ttp -uterus firm, below the level of the umbilicus -considering tubal ligation for pp contraception -will likely f/u with [facility] for pp care, information provided -plans to formula feed -ambulating and passing flatus -UDS + for cocaine -CPS saw patient yesterday and the decision was made that baby would be going home with patient's mother -sad, with no active plans to hurt herself or anybody else -2 previous children not under her custody Dispo: d/c home today with f/u in 1 week, baby going home with patient's mother Addendum - Attending - Attending Attestation Date/Time: 07/20/19 0573 I personally evaluated the patient and discussed the management with Dr. Amos I agree with the History, Examination, Assessment and Plan documented above with any addition or exceptions noted below. CPS to send child home with grandmother. d/c patient today. F/U 2 wk. Given RTC precautions.
[2019-07-20] MEDS: Docusate Calcium (SURFAK) 240 MG CAP PO SCH (08:08)
[2019-07-20] MEDS: Prenatal Vitamin 1 TAB PO SCH (08:08)
[2019-07-20] MEDS: Ferrous Sulfate 325 MG TAB PO SCH (08:09)
[2019-07-20 10:05] VITALS: BP 115/57; TEMP 98.3
--- NOTE | 2019-07-21 02:42 | DIS ---
DATE OF ADMISSION: 07/18/2019 DATE OF DISCHARGE: 07/20/2019 ADMITTING RESIDENT: Reji Carballo DO ADMITTING ATTENDING: Allyn Villa MD. DISCHARGE RESIDENT: Staci Amos MD DISCHARGE ATTENDING: Audie Goddard MD. CONSULTS: Case Management, CPS. PROCEDURES: Normal spontaneous vaginal delivery, epidural. PRIMARY DIAGNOSIS: Spontaneous vaginal. SECONDARY DIAGNOSES: Active care, history of drug abuse, UDS positive for cocaine. DISCHARGE MEDICATIONS: 1. 240 mg docusate calcium p.o. b.i.d. p.r.n. 2. 325 mg ferrous sulfate p.o. b.i.d. 3. 800 mg ibuprofen p.o. q.8 hours p.r.n. 4. One tablet vitamin p.o. daily. DISCONTINUED MEDICATIONS: 1. Tylenol. 2. Dulcolax. 3. Hydralazine. 4. Lactated Ringer's. 5. Milk of magnesia. 6. Zofran. 7. Phenergan. 8. Pitocin. HISTORY OF PRESENT ILLNESS/HOSPITAL COURSE: A 28-year-old, G3, P2-0-0-2, who presents at 38 and 6 for leaking of fluid, AmniSure found to be positive. The patient was then admitted to and D. She was given Cytotec for SROM without contractions and given an epidural. Membranes ruptured for a total 14 hours. She delivered a viable female infant at 39 weeks at 0319 on 07/18 without any vaginal or perineal lacerations. The patient had limited care prior to delivery, so much of her course is unknown. She was found to be RPR negative, hep B negative, HIV negative, rubella immune per hospital labs. Her UDS was found to be positive for cocaine. Case Management was consulted, who determined that her two previous children were under the custody of her mother due to previous encounters with CPS for drug abuse. CPS consulted and determined that her baby girl would be going into the custody of her mother as well. Upon discharge, the patient reported mild lochia, improving abdominal cramping, and ability to ambulate without assistance. She reported that she had some feelings of depression regarding her baby being taken by CPS, though she reported that she was going to fight for her baby and was optimistic about the future. She denied having any thoughts or an active plan of harming herself or anyone else. The patient was evaluated by Dr. Goddard on the morning of discharge, and the patient was agreeable to the plan of care. DISPOSITION: Stable. DISCHARGE INSTRUCTIONS: 1. Location: Home. 2. Diet: Regular. 3. Activity: As tolerated, pelvic rest for 6 weeks. 4. Follow up with PCP @ [facility] within one week for depression followup. Job ID: [id number] [id number]
== END 2019-07-20 15:06 | disposition home or self-care (01) | DRG 807 ==
LOC: L&D/OP 20:35 → L&D 07-18 02:01 → 3SW 07-18 08:09
PROVIDERS: ADMIT Family Medicine; ATTEND Family Medicine
PROC: 10E0XZZ Delivery of Products of Conception, External Approach (ICD-10-PCS; principal; 2019-07-18)
DX: O99.324 Drug use complicating childbirth (principal); Z37.0 Single live birth; F14.94 Cocaine use, unspecified with cocaine-induced mood disorder; Z3A.38 38 weeks gestation of pregnancy
CPT/HCPCS: 36415; 80306; 81001; 84112; 85027; 86706; 86762; 86780; 86850; 86900; 86901; 87340; 87389; 88307; 99285; J2001

== ENCOUNTER 2020-01-18 15:16 | Emergency (ER) | payer OTHER | END 2020-01-18 15:35 | disposition home or self-care (01) | LOC: ERS 15:16 | DX: M54.6 Pain in thoracic spine (principal); F32.9 Major depressive disorder, single episode, unspecified; F17.210 Nicotine dependence, cigarettes, uncomplicated | CPT/HCPCS: 99281 ==

== ENCOUNTER 2021-03-16 12:26 | Emergency (ER) | payer MEDICAID ==
[2021-03-16 13:21] LABS: #Basophils 0.1 thou/uL (0.0-0.2); #Eosinphils 0.9 thou/uL (0.0-0.7); #Lymphocytes 2.6 thou/uL (1.20-3.40); #Monocytes 0.5 thou/uL (0.11-0.59); #Neutrophils 2.8 thou/uL (1.40-6.50); %Lymphocytes 37.6 % (21.0-51.0); %Monocytes 7.7 % (0.0-10.0); %Neutrophils 40.7 % (42.0-75.0); Hemoglobin 13.8 g/dL (12.0-16.0); Mean Corpuscular HGB CONC 34.3 g/dL (32.0-36.0); Mean Corpuscular Hemoglobin 32.7 pg (27.0-31.0); Mean Corpuscular Volume 95.4 fL (78.0-98.0); Mean Platelet Volume 7.1 fL (7.4-10.4); Platelet Count 237 thou/uL (130-400); RBC Distribution Width 11.9 % (11.5-14.5); Red Blood Cell (RBC) Count 4.21 mill/uL (4.20-5.40); White Blood Cell (WBC) Count 6.9 thou/uL (4.8-10.8)
[2021-03-16 13:44] LABS: ALT (SGPT) 8 U/L (8-55); AST (SGOT) 13 U/L (5-34); Albumin 3.4 g/dL (3.5-5.0); Alkaline Phosphatase 54 U/L (40-110); Anion Gap 11 mmol/L (10-20); BUN (Urea Nitrogen) 8 mg/dL (7.0-18.7); Bilirubin, Total 0.4 mg/dL (0.2-1.2); Calc. Creatinine Clearance 0 mL/min (70-130); Calcium 8.1 mg/dL (7.8-10.44); Carbon Dioxide 23 mmol/L (22-29); Chloride 110 mmol/L (98-107); Glucose 88 mg/dL (70-105); Lipase 20 U/L (8-78); Protein, Total 5.4 g/dL (6.0-8.3); Sodium 140 mmol/L (136-145)
[2021-03-16 14:31] LABS: Bacteria/HPF None Seen HPF (None Seen); Bilirubin Negative (Negative); Blood, Urine Negative (Negative); Clarity Clear (Clear); Glucose, Urine (Dipstick) Normal (Negative); Ketone, Urine Negative (Negative); Leukocyte 25 Leu/uL (Negative); Nitrite Negative (Negative); Protein, Urine (Dipstick) 30 mg/dL (Neg-Trace); RBC/HPF 0-3 HPF (0-3); Specific Gravity, Urine 1.037 (1.002-1.036); Urobilinogen 3 mg/dL (Less than 2); WBC/HPF 0-3 HPF (0-3)
[2021-03-16 14:32] LABS: Pregnancy Test - Urine (BHCG) Negative (Negative); Pregu Control Background? CLEAR/WHITE (CLR/WHITE); Pregu Control Bar Appear? YES (CONTROL BAR); Specific Gravity 1.037 (1.002-1.036)
[2021-03-16] MEDS ORDERED: Ketorolac Tromethamine 30 MG/ML VIAL ONE (17:27)
== END 2021-03-16 17:36 | disposition home or self-care (01) ==
LOC: ERS 12:26
DX: R07.9 Chest pain, unspecified (principal); R10.9 Unspecified abdominal pain; D64.9 Anemia, unspecified; F17.210 Nicotine dependence, cigarettes, uncomplicated
CPT/HCPCS: 36415; 71045; 80053; 81003; 81015; 81025; 83690; 84484; 85025; 93005; 94760; 96374; J1885

== ENCOUNTER 2021-08-11 21:28 | Emergency (ER) | payer MEDICAID ==
[2021-08-11 23:09] LABS: Bilirubin Negative (Negative); Blood, Urine Negative (Negative); Clarity Clear (Clear); Glucose, Urine (Dipstick) Normal (Negative); Ketone, Urine Negative (Negative); Leukocyte Negative Leu/uL (Negative); Nitrite Negative (Negative); Protein, Urine (Dipstick) 10 mg/dL (Neg-Trace); Specific Gravity, Urine 1.023 (1.002-1.036); pH, Urine 5.5 (5.0-9.0)
[2021-08-11 23:10] LABS: Pregnancy Test - Urine (BHCG) Negative (Negative); Pregu Control Background? CLEAR/WHITE (CLR/WHITE); Pregu Control Bar Appear? YES (CONTROL BAR); Specific Gravity 1.023 (1.002-1.036)
[2021-08-11 23:12] LABS: #Basophils 0.1 thou/uL (0.0-0.2); #Eosinphils 0.6 thou/uL (0.0-0.7); #Lymphocytes 3.1 thou/uL (1.20-3.40); #Monocytes 0.7 thou/uL (0.11-0.59); #Neutrophils 4.6 thou/uL (1.40-6.50); %Basophils 0.6 % (0.0-1.0); %Eosinophils 6.8 % (0.0-10.0); %Lymphocytes 34.3 % (21.0-51.0); %Monocytes 7.5 % (0.0-10.0); %Neutrophils 50.8 % (42.0-75.0); Hemoglobin 15.3 g/dL (12.0-16.0); Mean Corpuscular HGB CONC 33.8 g/dL (32.0-36.0); Mean Corpuscular Hemoglobin 31.6 pg (27.0-31.0); Mean Corpuscular Volume 93.5 fL (78.0-98.0); Mean Platelet Volume 6.7 fL (7.4-10.4); Platelet Count 276 thou/uL (130-400); RBC Distribution Width 12.2 % (11.5-14.5); Red Blood Cell (RBC) Count 4.82 mill/uL (4.20-5.40)
[2021-08-11 23:35] LABS: ALT (SGPT) 11 U/L (8-55); AST (SGOT) 15 U/L (5-34); Albumin 3.7 g/dL (3.5-5.0); Alkaline Phosphatase 52 U/L (40-110); Anion Gap 10 mmol/L (10-20); BUN (Urea Nitrogen) 6 mg/dL (7.0-18.7); Bilirubin, Total 0.8 mg/dL (0.2-1.2); Calc. Creatinine Clearance 0 mL/min (70-130); Calcium 9.5 mg/dL (7.8-10.44); Carbon Dioxide 24 mmol/L (22-29); Chloride 108 mmol/L (98-107); Globulin 2.6 g/dL (2.4-3.5); Glucose 108 mg/dL (70-105); Lipase 16 U/L (8-78); Potassium 3.6 mmol/L (3.5-5.1); Protein, Total 6.3 g/dL (6.0-8.3); Sodium 138 mmol/L (136-145)
== END 2021-08-11 23:28 | disposition home or self-care (01) ==
LOC: ERS 21:28
DX: R10.33 Periumbilical pain (principal); R11.0 Nausea; D64.9 Anemia, unspecified; F17.210 Nicotine dependence, cigarettes, uncomplicated
CPT/HCPCS: 36415; 80053; 81003; 81025; 83690; 85025; 99283